=== PATIENT | male | born 1965 | race Caucasian/White ===

== ENCOUNTER 2023-12-07 11:23 | Emergency (ER) | payer OTHER, SELFPAY ==
[2023-12-07 11:33] VITALS: BP 148/85
[2023-12-07 11:53] LABS: % Basophils 0.7 % (0-2); % Eosinophils 3.6 % (0-6); % Immature Granulocytes 0.5 % (0-0.5); % Lymphocytes 27.8 % (20.5-51.1); % Neutrophils 54.4 % (42.2-75.2); Absolute Eosinophils 0.2 10^3/uL (0-0.7); Absolute Lymphocytes 1.6 10^3/uL (1.2-3.4); Absolute Monocytes 0.8 10^3/uL (0.1-0.6); Absolute Neutrophils 3.1 10^3/uL (1.4-6.5); Hemoglobin 14.7 g/dL (13.0-18.0); Mean Corpuscular Hgb 29.5 pg (27.0-31.0); Mean Corpuscular Volume 84.2 fL (80.0-94.0); Mean Platelet Volume 10.2 fL (7.4-10.4); Nucleated Red Blood Cells % 0 % (-); Platelet Count 274 10^3/uL (130-400); Red Blood Cell Count 4.99 10^6/uL (4.70-6.10); Red Cell Dist. Width 12.7 % (11.5-14.5); White Blood Cell Count 5.8 10^3/uL (4.8-10.8)
[2023-12-07 12:24] LABS: ALT (SGPT) 24 U/L (0-50); AST (SGOT) 33 U/L (17-59); Albumin 4.7 g/dl (3.5-5.0); Alkaline Phosphatase 68 U/L (38-126); Blood Urea Nitrogen 19 mg/dl (9-20); Calcium 10.3 mg/dl (8.4-10.2); Carbon Dioxide 24 mmol/L (22-30); Chloride 104 mmol/L (98-107); Glucose 111 mg/dl (70-99); Potassium 4.7 mmol/L (3.5-5.1); Sodium 140 mmol/L (135-145); Total Protein 7.5 g/dl (6.3-8.2); eGFR > 60.00
[2023-12-07 12:46] LABS: TSH Reflex To Free T4 2.08 uIU/ml (0.47-4.68)
[2023-12-07 12:48] VITALS: BP 156/87
[2023-12-07 13:00] VITALS: BP 135/80
--- NOTE | 2023-12-07 13:18 | ED.GENMED ---
History of Present Illness
General
Chief Complaint: Heart Rate Problem
Source: patient
Time Seen by Provider: 12/07/23 12:28
Travel History
Have you had any contact with someone who has COVID-19?: No
Do you have any symptoms of coronavirus? Fever > 100 degrees, chills, cough, shortness of breath, sore throat, loss of taste or smell, muscle aches, or headache?: No
History of Present Illness
History of Present Illness:
58-year-old male with no significant past medical history presenting emergency department for evaluation of palpitations that been ongoing for couple of days, lightheadedness that has been ongoing for the last 3 weeks accompanied with intermittent
blurred vision and last night also had some tingling sensation in his thumb index finger and middle finger. Patient states presently his symptoms are now fully resolved. He notes that his Apple Watch has noticed his resting heart rate has
increased slightly over the last 2 weeks as well. He notes that about a month ago while on a plane to [place] he intermittently noticed his heart rate went as high as 140 bpm but has yet to have this again. He denies any chest pain, shortness of
breath, diaphoresis, exertional dyspnea, orthopnea, cough, pleurisy, hemoptysis or any other concerns. Patient states he has 2 brothers who had from alcoholic cardiomyopathy but has never seen a client development manager himself. Patient notes that
he often bikes multiple times per week and is very active and is never having pain while exercising
Past History
Past History
ED Past Medical History: None
ED Past Surgical History: None
Social History
Tobacco: Non-smoker
Alcohol: None
Drug: None
Personal:
Living: with family
Review of Systems
Review of Systems
All Other Systems: ROS reviewed and negative except as documented in HPI and ROS
Phy Exam
Physical Exam
Physical Exam:
GENERAL: Alert , in no apparent distress
EYE: conjunctiva clear
NECK: Supple, no significant adenopathy.
ENT: o/p clr, mmm.
CARDIAC: Regular rate and rhythm, no murmur
LUNGS: Clear breath sounds bilaterally, no acute respiratory distress, no wheezes/rales/rhonchi
ABDOMEN: Soft, normoactive bowel sounds, nontender, nondistended
NEUROLOGICAL: Alert and oriented
SKIN: Warm and dry, skin intact.
MUSCULOSKELETAL: well perfused.
PSYCH: Normal and appropriate interaction.
Scores
Heart Failure Risk
Heart Failure Risk Score: Not Applicable
Heart Score for Chest Pain Patients
STEMI patient?: Not applicable
Withdrawal Assessment of Alcohol
Withdrawal Assessment Completed?: Not applicable
Course
Orders/Labs/Results
Orders:
Orders
12/07/23 11:37
Electrocardiogram (*1) Urgent
Reason for Study: Palpitations
EKG- Treatment ONCE
12/07/23 11:45
CMP [Comprehensive Metabolic Panel] Urgent
Complete Blood Count/With Diff Urgent
TSH Reflex To Free T4 Urgent
12/07/23 13:02
CR Chest - 2 Views Urgent
Comment:
Reason For Exam: palpitations, FH of cardiomyopathy
Abnormal Lab Results
12/07/23
11:45
Absolute Monos (auto) 0.8 H 10^3/uL
(0.1-0.6)
Monocytes % 13.0 H %
(1.7-9.3)
Glucose 111 H mg/dl
(70-99)
Calcium 10.3 H mg/dl
(8.4-10.2)
12/07/23 11:45
12/07/23 11:45
Vital Signs
Initial and Last Documented VS:
Initial Vital Signs
Temp Pulse Resp BP Pulse Ox
98.6 F 71 16 148/85 100
12/07/23 11:33 12/07/23 11:33 12/07/23 11:33 12/07/23 11:33 12/07/23 11:33
Last Documented Vital Signs
Temp Pulse Resp BP Pulse Ox
98.6 F 65 16 135/80 97
12/07/23 11:33 12/07/23 13:00 12/07/23 11:33 12/07/23 13:00 12/07/23 13:00
MDM/Problems Addressed
Differential Diagnosis Includes:
Cardiac dysrhythmia, valvular dysfunction, cardiomyopathy, no concern for ACS, thyroid disorder
MDM/Problems Addressed:
58-year-old male present emergency department for palpitations. He also notes some intermittent dizziness and blurred vision at times throughout the last 3 weeks. Asymptomatic at present. Patient does have a slightly elevated blood pressure which
could certainly be because of potential symptoms. He is in no acute distress. Hemodynamically stable. EKG is nonischemic. Will check a chest x-ray given patient's family history of cardiomyopathy however based off of patient's history this
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 As long as patient remains stable and unremarkable workup in the emergency department feel he would be okay to have close outpatient follow-up with
cardiology for further workup. Patient feels comfortable with this plan.
*Radiology
Radiology exam reviewed: preliminary read by ED provider (Normal chest x-ray)
*Pulse Oximetry
Patient hypoxic: no
*Critical Care Note
Total Time (30-74mins, 75-104mins- exclusive of procedures): Not Applicable
Patient Management
Escalation/DeEscalation of care consider admission/obs:
Patient remained stable and in a normal sinus rhythm. He is in no acute distress remains asymptomatic. Notified chest pain hotline to help expedite outpatient follow-up. Patient is aware of return precautions and otherwise discharged home.
ED Attending Note
-
Portions of this chart may have been created with voice recognition software.� Occasional wrong word or��sound alike� substitutions may have occurred due to the inherent limitations of voice recognition software.
Discharge Plan
Departure
Patient Disposition: Home (Routine Discharge)
Date of Disposition: 12/07/23
Time of Disposition: 13:50
Patient with high blood pressure during this ER visit?: Yes
Discharge Problem:
Palpitations
Instructions: Palpitations (DC), Chest Pain DCA Follow Up
Referrals:
Ricardo Hanson I., DO [Family Provider] -
Interventions
Interventions:
*General Assessment Last Done: 12/07/23 11:33
ED- Fall Risk Assessment Last Done: 12/07/23 13:21
*ED COVID-19 Vaccine History Last Done: 12/07/23 11:33
*Nursing Disposition Last Done: 12/07/23 14:59
ED- Cardiac Assessment Last Done: 12/07/23 13:21
ED- Pulmonary Assessment Last Done: 12/07/23 13:21
Discharge Date and Time
Discharge Date/Time: 12/07/23 15:00
Print Language: ROMANIAN
[2023-12-07 13:21] VITALS: BMI 30.1
== END 2023-12-07 15:00 | disposition home or self-care (01) ==
LOC: EMR 11:23
PROVIDERS: Emergency Medicine; EMERGENCY PHYSICIAN Emergency Medicine; FAMILY PHYSICIAN Internal Medicine
DX: R00.2 Palpitations (principal); R03.0 Elevated blood-pressure reading, without diagnosis of hypertension
CPT/HCPCS: 99285; 71046; 80053; 84443; 85025; 93005

== ENCOUNTER → 2024-01-21 10:12 | Outpatient (REF) | payer OTHER, SELFPAY | LOC: RCS 10:12 | PROVIDERS: ATTENDING PHYSICIAN Internal Medicine Cardiovascular Disease; FAMILY PHYSICIAN Internal Medicine | DX: R00.2 Palpitations (principal) | CPT/HCPCS: 93306 ==